=== PATIENT | female | born 2000 | race American Indian/Alaskan Native ===

== ENCOUNTER 2020-04-06 14:52 | Emergency (ER) | payer MEDICAID ==
[2020-04-06 16:15] VITALS: BP 122/75
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
--- NOTE | 2020-04-06 17:07 | XRay Report ---
RIGHT HAND, 3 VIEWS INDICATION / CLINICAL INFORMATION: right ring finger pain. COMPARISON: None available. FINDINGS: There is mild soft tissue swelling surrounding the PIP joint of the ring finger. Additionally, seen o nly on the lateral view, there is a small nondisplaced avulsion fracture from the base of the middle phalanx along the dorsal surface. The piece of avulsed bone is 3 mm in length. Additionally there is a 1 to 2 mm calcification seen along the volar surface of the PIP joint which may represent a second smaller piece of avulsed bone. Graft there remainder of the hand is unremarkable. IMPRESSION: 1. Nondisplaced 3 mm avulsion fracture from the dorsal surface of the base of the middle phalanx of t he ring finger. 2. Probable additional 1-2 mm avulsion fracture seen along the volar surface of the PIP joint. Donor site is unclear. Signer Name: Dora Hogan MD Signed: 04/06/2020 5:03 PM Workstation Name: [id number]
== END 2020-04-06 18:57 | disposition home or self-care (01) ==
LOC: ED 14:52
DX: S62.654A Nondisplaced fracture of middle phalanx of right ring finger, initial encounter for closed fracture (principal); Z79.899 Other long term (current) drug therapy; X58.XXXA Exposure to other specified factors, initial encounter; Y93.89 Activity, other specified; Y92.89 Other specified places as the place of occurrence of the external cause; Y99.8 Other external cause status